=== PATIENT | female | born 1980 | race Caucasian/White ===

== ENCOUNTER 2019-05-01 10:50 | Emergency (ER) | payer MEDICAID ==
--- NOTE | 2019-05-01 11:55 | RADIOLOGY REPORT (SQ) ---
EXAM DESCRIPTION: KNEE RIGHT 4 VIEWS COMPLETED DATE/TIME: 05/01/2019 11:39 am REASON FOR STUDY: knee pain COMPARISON: None. NUMBER OF VIEWS: Four views. TECHNIQUE: AP, lateral, and both oblique radiographic images acquired of the right knee. LIMITATIONS: None. FINDINGS: MINERALIZATION: Normal. BONES: No acute fracture or dislocation. No worrisome bone lesions. JOINT: No effusion. SOFT TISSUES: No soft tissue swelling. No radio-opaque foreign body. OTHER: No other significant finding. IMPRESSION: NEGATIVE STUDY OF THE RIGHT KNEE. NO RADIOGRAPHIC EVIDENCE OF ACUTE INJURY. TECHNICAL DOCUMENTATION: JOB ID: [id number] [employer]- All Rights Reserved Reading location - IP/workstation name: [email or web address]
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
[2019-05-01] MEDS ORDERED: HYDROCODONE/ACETAMINOPHEN 5-325 MG (6 TAB/ER DISP) PO PRN (12:23)
[2019-05-01 12:48] VITALS: BP 136/82
[2019-05-01] MEDS ORDERED: SILVER SULFADIAZINE 1% CREAM 25 GM TP ONE (13:00)
== END 2019-05-01 13:11 | disposition home or self-care (01) ==
LOC: ER 10:50
DX: S80.01XA Contusion of right knee, initial encounter (principal); M25.461 Effusion, right knee; M25.561 Pain in right knee; S01.80XA Unspecified open wound of other part of head, initial encounter; S71.101A Unspecified open wound, right thigh, initial encounter; S41.101A Unspecified open wound of right upper arm, initial encounter; V03.99XA Pedestrian with other conveyance injured in collision with car, pick-up truck or van, unspecified whether traffic or nontraffic accident, initial encounter
CPT/HCPCS: 99283; 73564; J3490

== ENCOUNTER 2020-09-08 23:01 | Emergency (ER) | payer MEDICAID ==
--- NOTE | 2020-09-09 00:44 | ER Document Report ---
ED Medical Screen (RME) - General Chief Complaint: OB Problem (<20wks) Stated Complaint: CHECK Time Seen by Provider: 09/09/20 00:41 Primary Care Provider: JAME MITCHELL FNP-BC [Primary Care Provider] - Follow up as needed Mode of Arrival: Ambulatory Information source: Patient Notes: Patient is a 40-year-old female coming in today chief complaint of here to get cleared for a detox program. 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 She is starting a detox program and she is wanting to make sure that she is cleared to participate in this detox program. she is having some upper abdominal pain and spasms. No vaginal bleeding. General exam: No acute distress Abdomen is soft I have greeted and performed a rapid initial assessment of this patient. A comprehensive ED assessment and evaluation of the patient, analysis of test results and completion of the medical decision making process will be conducted by additional ED providers. - Related Data Allergies/Adverse Reactions: No Known Allergies Allergy (Unverified 05/01/19 10:52) Past Medical History Renal/ Medical History: Denies: Hx Peritoneal Dialysis Physical Exam - Vital signs Vitals: Temp Pulse Resp BP Pulse Ox 98.9 F 90 18 130/94 H 100 09/08/20 23:58 09/08/20 23:58 09/08/20 23:58 09/08/20 23:58 09/08/20 23:58 Course - Vital Signs Vital signs: Temp Pulse Resp BP Pulse Ox 98.9 F 90 18 130/94 H 100 09/08/20 23:58 09/08/20 23:58 09/08/20 23:58 09/08/20 23:58 09/08/20 23:58 Doctor's Discharge - Discharge Referrals: JAME MITCHELL FNP-BC [Primary Care Provider] - Follow up as needed
[2020-09-09 01:12] LABS: APPEARANCE,URINE SLIGHTLY-CLOUDY; BILIRUBIN,URINE NEGATIVE (NEGATIVE); COLOR,URINE YELLOW; GLUCOSE, URINE NEGATIVE (NEGATIVE); KETONES,URINE 80 mg/dL (NEGATIVE); PROTEIN,URINE NEGATIVE (NEGATIVE); URINE SPECIFIC GRAVITY 1.015; UROBILINOGEN,URINE NEGATIVE mg/dL (<2.0)
[2020-09-09 01:33] LABS: ABSOLUTE EOSINOPHILS # (AUTO) 0.1 10^3/uL (0.0-0.6); ABSOLUTE LYMPHOCYTES (AUTO) 1.6 10^3/uL (0.5-4.7); ABSOLUTE MONOCYTES (AUTO) 0.3 10^3/uL (0.1-1.4); ABSOLUTE NEUT (AUTO) 4.9 10^3/uL (1.7-8.2); BASOPHILS % (AUTO) 0.6 % (0-2); EOSINOPHILS % (AUTO) 1.2 % (0-6); HEMATOCRIT 36.5 % (36.0-47.0); HEMOGLOBIN 13.1 g/dL (12.0-15.5); LYMPHOCYTES % (AUTO) 23.2 % (13-45); MEAN CORPUSCULAR HEMOGLOBIN 33.1 pg (27.0-33.4); MEAN CORPUSCULAR HGB CONC 35.9 g/dL (32.0-36.0); MEAN CORPUSCULAR VOLUME 92 fl (80-97); MONOCYTES % (AUTO) 4.8 % (3-13); PLATELET COUNT 211 10^3/uL (150-450); RED BLOOD COUNT 3.95 10^6/uL (3.72-5.28); RED CELL DISTRIBUTION WIDTH 12.6 % (11.5-14.0); SEGMENTED NEUTROPHILS % (AUTO) 70.2 % (42-78); TOTAL CELLS COUNTED % (AUTO) 100 %
[2020-09-09 02:02] LABS: ALBUMIN 3.6 g/dL (3.5-5.0); ALKALINE PHOSPHATASE 56 U/L (38-126); ANION GAP 9 (5-19); ASPARTATE AMINO TRANSFERASE 18 U/L (14-36); BILIRUBIN,TOTAL 0.4 mg/dL (0.2-1.3); BLOOD UREA NITROGEN 6 mg/dL (7-20); CALCIUM 9.6 mg/dL (8.4-10.2); CARBON DIOXIDE 24 mmol/L (22-30); CHLORIDE 105 mmol/L (98-107); GLUCOSE 97 mg/dL (75-110); POTASSIUM 4.6 mmol/L (3.6-5.0); TOTAL PROTEIN 6.5 g/dL (6.3-8.2)
--- NOTE | 2020-09-09 03:12 | RADIOLOGY REPORT (SQ) ---
EXAM DESCRIPTION: US LIMITED COMPLETED DATE/TME: 09/09/2020 02:31 CLINICAL HISTORY: 40 years Female, upper abd pain COMPARISON: None. TECHNIQUE: Limited greater than 14 week obstetrical ultrasound. measurements: BPD: 3.30 cm compatible with an estimated gestational age of 16 weeks, 2 days. HC: 12.75 cm compatible with an estimated gestational age is 16 weeks, 3 days. AC: 10.45 cm compatible with an estimated gestational age of 16 weeks, 3 days. FL: 2.0 cm compatible with an estimated gestational age of 16 weeks, 0 days. Composite gestational age of 16 weeks, 2days. Estimated weight of 149 g Estimated delivery date: 02/22/2021 by this ultrasound LVP: 3 cm Placenta: Anterior Cervical length: 3.0. Closed. presentation: Cephalic heart rate: 150 bpm. No organ survey performed. No abnormalities in the adnexa. IMPRESSION: 1. Single live intrauterine with estimated gestational age of 16 weeks, 2 days. heart rate of 150 bpm. Continued obstetrical follow-up recommended.
--- NOTE | 2020-09-09 06:59 | ER Document Report ---
ED General - General Mode of Arrival: Ambulatory <BLAKE PLATT - Last Filed: 09/09/20 08:32> <REKHA SHARIF - Last Filed: 09/09/20 14:32> - General Chief Complaint: Medical Clearance Stated Complaint: CHECK Time Seen by Provider: 09/09/20 00:41 Primary Care Provider: JAME MITCHELL FNP-BC [NURSE PRACTITIONER] - Follow up as needed - [facility] Notes: 40-year-old female, G4, P2, to the emergency department with officer from [facility] with complaints for needing medical clearance. Apparently the patient has been using methamphetamines several times a week and taking 10 mg Percocet twice a day for several years. She is 16 weeks . The custodial would like to try to detox her from these medicines but they wanted medical clearance. The patient denies any nausea or vomiting. Admits to intermittent upper abdominal pain. Denies any vaginal bleeding. Denies any urinary complaints. She denies any diaphoresis or diarrhea. (BLAKE PLATT) - Related Data Allergies/Adverse Reactions: No Known Allergies Allergy (Verified 09/09/20 02:51) Past Medical History - General Information source: Patient - Social History Smoking Status: Never Smoker Frequency of alcohol use: None Drug Abuse: Methamphetamine, Prescription drugs Family History: Reviewed & Not Pertinent Renal/ Medical History: Denies: Hx Peritoneal Dialysis <BLAKE PLATT - Last Filed: 09/09/20 08:32> Review of Systems - Review of Systems Constitutional: denies: Chills, Fever EENT: No symptoms reported Cardiovascular: denies: Chest pain, Palpitations, Heart racing, Syncope, Dizziness, Lightheaded Respiratory: denies: Cough, Short of breath Gastrointestinal: Abdominal pain. denies: Diarrhea, Nausea, Vomiting Genitourinary: No symptoms reported Female Genitourinary: Musculoskeletal: No symptoms reported Skin: No symptoms reported Neurological/Psychological: No symptoms reported -: Yes All other systems reviewed and negative <BLAKE PLATT - Last Filed: 09/09/20 08:32> Physical Exam - General General appearance: Appears well, Alert In distress: None - HEENT Head: Normocephalic, Atraumatic Eyes: Normal Pupils: PERRL Neck: Normal, Supple - Respiratory Respiratory status: No respiratory distress Chest status: Nontender Breath sounds: Normal. No: Rales, Rhonchi, Wheezing Chest palpation: Normal - Cardiovascular Rhythm: Regular Heart sounds: Normal auscultation Murmur: No - Abdominal Inspection: Obese Distension: No distension Bowel sounds: Normal Tenderness: Nontender. No: McBurney's point, Vuong's sign, Guarding, Rebound Organomegaly: No organomegaly - Back Back: Normal. No: CVA tenderness - Neurological Neuro grossly intact: Yes Cognition: Normal Orientation: AAOx4 Samantha Coma Scale Eye Opening: Spontaneous [place] Coma Scale Verbal: Oriented [place] Coma Scale Motor: Obeys Commands [place] Coma Scale Total: 15 Speech: Normal Cranial nerves: Normal Cerebellar coordination: Normal Motor strength normal: LUE, RUE, LLE, RLE Additional motor exam normals: Equal pharmacy associate Sensory: Normal - Psychological Associated symptoms: Normal affect, Normal mood - Skin Skin Temperature: Warm Skin Moisture: Dry Skin Color: Normal <BLAKE PLATT - Last Filed: 09/09/20 08:32> - Vital signs Vitals: Temp Pulse Resp BP Pulse Ox 98.9 F 90 18 130/94 H 100 09/08/20 23:58 09/08/20 23:58 09/08/20 23:58 09/08/20 23:58 09/08/20 23:58 - General Notes: Patient is handcuffed and with officer (BLAKE PLATT) Course - Laboratory Result Diagrams: 09/09/20 01:11 09/09/20 01:11 - Diagnostic Test Radiology reviewed: Image reviewed, Reports reviewed <BLAKE PLATT - Last Filed: 09/09/20 08:32> - Laboratory Result Diagrams: 09/09/20 01:11 09/09/20 01:11 <REKHA SHARIF - Last Filed: 09/09/20 14:32> - Re-evaluation Re-evalutation: 09/09/[address] Quezada, [employer] senior project controls specialist. She states that detox from opioids in is very delicate situation. She states that current literature supports a substitution for the Percocet such as Suboxone or Subutex. There is some literature that supports that rapid cessation of opioids can lead to miscarriage. She states the patient to stop methamphetamines immediately and there is no need to worry about detox from now. She is aware of the patient's ultrasound and lab work. She suggests that we make the recommendation for the custodial to do appropriate detox by substitution for the Percocet. Spoke with Reshma, intake nurse at [facility]. I advised her of the results of the patient and that she would need appropriate detox from the rcocet because of her . Reshma notifies me that they do not have the capability of giving her either her Percocet for her Suboxone in the custodial. The patient will need to be upgraded to the [facility] in [place]. They will need to make arrangements for her. In the meantime they cannot appropriately monitor her or treat her. Dr. Hartman, my ER attending and I spoke about the patient. We agree that she will need to stay in the emergency department until she is appropriate placement in the correct custodial facility that can do her detox. We talked about whether or not to give the patient Percocet versus starting her on Suboxone. Per Dr. Hartman for this recommendation, we will start Percocet and allow the custodial to do the substitution. 09/09/20 08:32 patient turned over to BRUNA Sharif. She will assume care, await contact from the custodial to get her to [place] for a facility that can care for her. (BLAKE PLATT) 09/09/20 09:15 Patient has now been placed in a room. We are awaiting contact from [facility] in [place] where they have medical capability to care for the patient. Officer remains at bedside. 09/09/20 09:29 Nurse from custodial has contacted me stating that BRUNA Crowley would like me to call her at [phone]. His number is disconnected. I have made multiple phone calls in an attempt to get a hold of her. I did just get off the phone with somebody [facility] at [phone], they will pass the message along to BRUNA Crowley that I am trying to return her phone call but the numbers not working. I have given them a good callback number here in the emergency department. Spoke with nurse practitioner Pauline at the [facility]. She is excepted the patient. The patient will be medically discharged at this time. Law enforcement is taking the patient to safekeeping where they can treat her and ongoing detoxification situation. Patient identifies no needs at the time of discharge. (REKHA SHARIF) - Vital Signs Vital signs: Temp Pulse Resp BP Pulse Ox 98.1 F 94 16 138/95 H 100 09/09/20 11:34 09/09/20 11:34 09/09/20 11:34 09/09/20 11:34 09/09/20 11:34 - Laboratory Laboratory results interpreted by me: 09/09/20 09/09/20 00:08 01:11 BUN 6 L Creatinine 0.45 L Beta HCG, Quant 83047.00 H Urine Ketones 80 H Urine Ascorbic Acid 20 H Discharge <BLAKE PLATT - Last Filed: 09/09/20 08:32> <REKHA SHARIF - Last Filed: 09/09/20 14:32> - Discharge Clinical Impression: Opioid dependency in Condition: Stable Disposition: HOME, SELF-CARE Additional Instructions: The recommendation of our [employer]ER on-call, Dr. Quezada is to transition the patient from her oxycodone to Suboxone. She was given a dose of oxycodone here in the emergency department. She is otherwise medically cleared. A copy of her ultrasound and labs is enclosed in this packet. Referrals: JAME MITCHELL FNP-BC [NURSE PRACTITIONER] - Follow up as needed
[2020-09-09] MEDS ORDERED: OXYCODONE-ACETAMINOPHEN 5-325 MG TABLET PO SCH (10:00)
[2020-09-09 11:35] VITALS: BP 138/95
== END 2020-09-09 11:35 | disposition home or self-care (01) ==
LOC: ER 23:01
DX: O99.322 Drug use complicating pregnancy, second trimester (principal); F11.20 Opioid dependence, uncomplicated; F15.10 Other stimulant abuse, uncomplicated; O26.892 Other specified pregnancy related conditions, second trimester; R10.10 Upper abdominal pain, unspecified; Z3A.16 16 weeks gestation of pregnancy
CPT/HCPCS: 36415; 76815; 80053; 81001; 84702; 85025; 99284